=== PATIENT | female | born 1950 | race Asian ===

== ENCOUNTER 2024-09-12 08:31 | Emergency (ER) | payer OTHER ==
[~2024-09-12] VITALS: Ht 157.5 cm; Wt 81.6 kg
[2024-09-12 08:31] VITALS: BP_SYST 103; PULSE 134; RESP 19; TEMP 99.1; O2SAT 99
[2024-09-12 10:03] LABS: BASOPHILS % (AUTO) 0.2 % (0.0-2.0); EOSINOPHILS % (AUTO) 0.1 % (0.0-4.0); HEMATOCRIT 38.8 % (36-48); HEMOGLOBIN 12.4 g/dL (12.0-16.0); LYMPHOCYTES # (AUTO) 0.5 K/uL (1.0-5.5); LYMPHOCYTES % (AUTO) 13.9 % (20.5-51.5); MEAN CORPUSCULAR HEMOGLOBIN 21 pg (27-31); MEAN CORPUSCULAR HGB CONC 32 % (32-36); MEAN CORPUSCULAR VOLUME 65 fL (79.0-98.0); MONOCYTES # (AUTO) 0.1 K/uL (0.0-1.0); MONOCYTES % (AUTO) 2.2 % (1.7-9.3); NEUTROPHILS % (AUTO) 83.6 % (40.0-70.0); PLATELET COUNT (AUTO) 155 K/uL (130-430); RED BLOOD CELL COUNT(AUTO) 6.02 MIL/uL (4.2-6.2); RED CELL DISTRIBUTION WIDTH 20.7 % (9.0-15.0); WHITE BLOOD COUNT (AUTO) 3.5 K/uL (4.8-10.8)
[2024-09-12 10:40] LABS: ALANINE AMINOTRANSFERASE 95 U/L (12-78); ALBUMIN 2.5 g/dL (3.4-4.8); ANION GAP 10 (5-15); ASPARTATE AMINOTRANSFERASE 68 U/L (10-37); BILIRUBIN,DIRECT 0.1 mg/dL (0.0-0.3); CARBON DIOXIDE 27 mmol/L (23-29); CHLORIDE 98 mmol/L (98-107); CREATINE KINASE, TOTAL 341 U/L (26-192); CREATININE 0.74 mg/dL (0.55-1.30); FREE T4 (FREE THYROXINE) 0.7 ng/dL (0.6-1.6); GLUCOSE 104 mg/dL (74-106); POTASSIUM 3.6 mmol/L (3.5-5.1); SODIUM SERUM 135 mmol/L (136-145); TOTAL BILIRUBIN 0.4 mg/dL (0.0-1.0); TOTAL PROTEIN, SERUM 6.1 g/dL (6.4-8.3); UREA NITROGEN, BLOOD 24 mg/dL (8-21)
[2024-09-12 10:51] LABS: ACETONE, SERUM NEGATIVE (NEGATIVE)
[2024-09-12] MEDS: levETIRAcetam 500 MG IV PREMIX 100 ML IV ONE (11:05)
[2024-09-12 11:08] LABS: CKMB RELATIVE INDEX 0.3 (0.0-2.9)
[2024-09-12] MEDS: levETIRAcetam 500 MG in NS 100 ML IV ONE (11:17)
[2024-09-12 12:47] LABS: BILIRUBIN,URINE NEGATIVE (NEGATIVE); BLOOD, URINE 2+ (NEGATIVE); CLARITY/URINE CLEAR (CLEAR); COLOR,URINE YELLOW (YELLOW); GLUCOSE,URINE NEGATIVE (NEGATIVE); KETONES,URINE NEGATIVE (NEGATIVE); LEUKOCYTE ESTERASE ,URINE NEGATIVE (NEGATIVE); NITRITE, URINE NEGATIVE (NEGATIVE); PROTEIN URINE TRACE (NEGATIVE)
[2024-09-12 12:59] LABS: RBC,URINE 0-3 /HPF (0-3)
[2024-09-12 13:00] LABS: BACTERIA,URINE FEW /HPF (None Seen); WBC,URINE 0-3 /HPF (0-3)
[2024-09-12 19:06] VITALS: BP_SYST 110; PULSE 106; RESP 17; TEMP 99.2; O2SAT 96
== END 2024-09-12 19:16 | disposition home or self-care (01) ==
LOC: SED 08:31
DX: C71.9 Malignant neoplasm of brain, unspecified (principal); C78.00 Secondary malignant neoplasm of unspecified lung; R40.0 Somnolence; I10 Essential (primary) hypertension; Z20.822 Contact with and (suspected) exposure to COVID-19
CPT/HCPCS: 99285; 96365; 70450; 71045; 87426; 80076; 80048; 81001; 82009; 82550; 82553; 84439; 84443; 85025; 85610; 85730; 84484; 36415; 93005; 82948; 83605; J1953 ×2; 81000; 81015